=== PATIENT | male | born 1985 | race African-American/Black ===

== ENCOUNTER 2016-10-28 16:59 | Emergency (ER) | payer SELFPAY ==
[2016-10-28 17:07] VITALS: BP 140/92
[2016-10-28] MEDS ORDERED: LIDOCAINE 2% VISCOUS SOLN 20 ML UDCUP PO ONE (17:59)
--- NOTE | 2016-10-28 18:05 | ER Document Report ---
ED ENT - General Chief Complaint: Sore Throat Stated Complaint: SORE THROAT, TOOTHACHE Time Seen by Provider: 10/28/16 17:41 Mode of Arrival: Ambulatory Information source: Patient Notes: 31-year-old male presents to ED for right upper dental pain to tooth 2, 3, and 4. These teeth have been bad according to the charts since 2014. He states he has not had time or money to fix them. He states the last time he was in here when he was for 4 teeth on the bottom that were hurting him. He states that these decayed broken teeth are causing him to have a sore throat and a right sided ear pain. He states he does not think there is any infection in his throat or his ear it is just that the tooth is hurting so much. TRAVEL OUTSIDE OF THE [place] IN LAST 30 DAYS: No - HPI Onset: Other - Chronic were started and on Monday Onset/Duration: Persistent Quality of pain: Sharp, Stabbing Severity: Severe Pain Level: 5 Location of pain: Tooth - Dental pain causing his right side of his throat and ear to hurt Associated symptoms: Other - Dental pain with broken cracked tooth Similar symptoms previously: Yes Recently seen / treated by doctor: No - Related Data Allergies/Adverse Reactions: clindamycin [Clindamycin] Allergy (Verified 10/28/16 17:02) tramadol [Tramadol] Allergy (Verified 10/28/16 17:02) Past Medical History - General Information source: Patient - Social History Smoking Status: Current Every Day Smoker Cigarette use (# per day): Yes - Half pack per day Chew tobacco use (# tins/day): No Smoking Education Provided: Yes - Less than 2 minutes Frequency of alcohol use: None Drug Abuse: None Occupation: [employer] Lives with: Family Family History: Reviewed & Not Pertinent Patient has suicidal ideation: No Patient has homicidal ideation: No - Past Medical History Cardiac Medical History: Reports: None Pulmonary Medical History: Reports: None EENT Medical History: Reports: None Neurological Medical History: Reports: None Endocrine Medical History: Reports: None Renal/ Medical History: Reports: None Malignancy Medical History: Reports None GI Medical History: Reports: None Musculoskeltal Medical History: Reports Hx Musculoskeletal Deformity, Reports Hx Musculoskeletal Trauma Skin Medical History: Reports None Psychiatric Medical History: Reports: None Traumatic Medical History: Reports: None Infectious Medical History: Reports: None Past Surgical History: Reports: Hx Orthopedic Surgery - knee - Immunizations Immunizations up to date: Yes Hx Diphtheria, Pertussis, Tetanus Vaccination: Yes Review of Systems - Review of Systems Constitutional: No symptoms reported EENT: Dental problem - States that dental pain is causing his right ear and throat to her Cardiovascular: No symptoms reported Respiratory: No symptoms reported Gastrointestinal: No symptoms reported Genitourinary: No symptoms reported Male Genitourinary: No symptoms reported Musculoskeletal: No symptoms reported Skin: No symptoms reported Hematologic/Lymphatic: No symptoms reported Neurological/Psychological: No symptoms reported -: Yes All other systems reviewed and negative Physical Exam - Vital signs Vitals: Temp Pulse Resp BP Pulse Ox 98.7 F 93 16 140/92 H 98 10/28/16 17:04 10/28/16 17:04 10/28/16 17:04 10/28/16 17:04 10/28/16 17:04 Interpretation: Normal - General General appearance: Appears well, Alert - HEENT Head: Normocephalic, Atraumatic Eyes: Normal Pupils: PERRL Ears: Normal External canal: Normal Tympanic membrane: Normal Sinus: Normal Nasal: Normal Mouth/Lips: Caries Mucous membranes: Normal Teeth diagram: 1 - Decayed and broken teeth with minimal redness around the tooth Pharynx: No: Erythema, Exudate, Peritonsillar abscess, Post nasal drainage, Retropharyngeal abscess, Tonsillar hypertrophy, Uvular edema, Potential airway comprom. Neck: Normal - Respiratory Respiratory status: No respiratory distress Chest status: Nontender Breath sounds: Normal Chest palpation: Normal - Cardiovascular Rhythm: Regular Heart sounds: Normal auscultation Murmur: No - Abdominal Inspection: Normal Distension: No distension Bowel sounds: Normal Tenderness: Nontender Organomegaly: No organomegaly - Back Back: Normal, Nontender - Extremities General upper extremity: Normal inspection, Nontender, Normal color, Normal ROM , Normal temperature General lower extremity: Normal inspection, Nontender, Normal color, Normal ROM , Normal temperature, Normal weight bearing. No: Des's sign - Neurological Neuro grossly intact: Yes Cognition: Normal Orientation: AAOx4 Nilda Coma Scale Eye Opening: Spontaneous [place] Coma Scale Verbal: Oriented Nilda Coma Scale Motor: Obeys Commands Nilda Coma Scale Total: 15 Speech: Normal Motor strength normal: LUE, RUE, LLE, RLE Sensory: Normal - Psychological Associated symptoms: Normal affect, Normal mood - Skin Skin Temperature: Warm Skin Moisture: Dry Skin Color: Normal Course - Re-evaluation Re-evalutation: 10/28/16 18:21 Patient was treated with amoxicillin and viscous lidocaine for his dental pain with minimal swelling to the jaw. There is no facial swelling noted. His oral mucosa is normal no redness no swelling of the tonsils no exudate. There is no signs of an ear infection. Patient to follow-up with the dentist - Vital Signs Vital signs: Temp Pulse Resp BP Pulse Ox 98.7 F 93 16 140/92 H 98 10/28/16 17:04 10/28/16 17:04 10/28/16 17:04 10/28/16 17:04 10/28/16 17:04 Discharge - Discharge Clinical Impression: Pain due to dental caries Condition: Stable Disposition: HOME, SELF-CARE Additional Instructions: TOOTHACHE: Your pain is due to dental decay. The tooth must be repaired in order for you to feel better. You will, therefore, be referred to a dentist. We do not have dentists on the staff at [facility]. Severe swelling or drainage around a tooth usually means a dental abscess. This also requires evaluation and treatment by the dentist, but antibiotics may be prescribed while awaiting dental treatment. You should be rechecked immediately if you develop major swelling of the face, increasing pain, a lump in the jaw or gums, headache, difficulty swallowing, or fever. Amoxicillin Amoxicillin is a member of the penicillin family. It covers the germs likely to cause ear, bronchial, and urinary infections better than plain penicillin. Amoxicillin can be taken without regard to meals. Nausea after taking the medication is rare, but can occur. Diarrhea can occur, particularly in small children. Vaginal yeast infections and oral thrush in infants are also common. Contact your physician if these problems occur. Allergy to penicillins is common. If you have had an allergic reaction to any drug of the penicillin family, you should never take any other penicillin. Notify your doctor at once if you develop hives, itching, swelling, faintness, or shortness of breath. Less serious side effects can include nausea or diarrhea. Use the viscous lidocaine that you were provided with in the syringe to apply a small amount to your affected area every 3-4 hours for your dental pain. Schedule a follow-up appointment with your dentist as soon as possible to have these teeth treated. There is no pain medicine or antibiotic that will fix your decayed and broken teeth. This will need an oral surgeon or dentist FOLLOW-UP CARE: You have been referred for follow-up care to the dentists listed below. Call the dentists office for an appointment as you were instructed or within the next two days. If you experience worsening or a significant change in your symptoms, notify the physician immediately or return to the Emergency Department at any time for re-evaluation. [facility] [address] [place], [place] Monday mornings, by appointment [facility] [address] [place] [address] [facility] [address] [facility] [address] [facility] [address] [email or web address] [address] [place] [address] Monday- 8:00am to 5:00 pm Will see patients from other [facility]. Charges based on income and family size and accepts Medicare, Medicaid, and Insurances Will pull molars [facility] [id number] Hours of Operation 8:00 am - 4:30 pm weekdays The following dental offices accept Medicaid: [facility] [address]. [address] Dr[address] Piper Dr. Uribe Dr. Somers Daneilito Roberts Lutsavage, and Charla oral surgery Dr. Kaplan ([place]) Dr. Zavala ([place]) [facility] Drs. Seaman and Himanshu ([place]) Dr. Gonzales ([place]) [facility] Dr. Khoury ([place]) Drs. Guardado and ([place]) Medicaid Care Line Prescriptions: Amoxicillin Trihydrate [Amoxil 875 mg Tablet] 1 tab PO BID #14 tablet Referrals: KIMBERLY HERNANDEZ DDS [ACTIVE STAFF] - Follow up as needed
== END 2016-10-28 18:15 | disposition home or self-care (01) ==
LOC: ER 16:59
DX: K02.9 Dental caries, unspecified (principal); K08.89 Other specified disorders of teeth and supporting structures; R22.0 Localized swelling, mass and lump, head; J02.9 Acute pharyngitis, unspecified; H92.01 Otalgia, right ear; Z88.1 Allergy status to other antibiotic agents; Z88.5 Allergy status to narcotic agent; F17.210 Nicotine dependence, cigarettes, uncomplicated; Z71.6 Tobacco abuse counseling
CPT/HCPCS: 99282; J3490